=== PATIENT | male | born 1965 | race Caucasian/White ===

== ENCOUNTER → 2018-05-29 13:37 | Outpatient (CLI) | payer OTHER ==
[2014-02-17 05:25] VITALS: BMI 25.9
--- NOTE | ~2018-05-29 | EC ---
PATIENT:SOFIA SWAN DATE OF SERVICE: 05/29/18 SEX: M MEDICAL RECORD: [id number] DATE OF : 69 LOCATION:[facility] AGE OF PATIENT: 52 ADMISSION DATE: 05/29/18 REFERRING PHYSICIAN: INTERPRETING PHYSICIAN: DAVIDE KILGORE MD ECHOCARDIOGRAM REPORT ECHO CHARGES Date: CLINICAL DIAGNOSIS: ECHOCARDIOGRAPHIC MEASUREMENTS (adult normal given) AC root (d.<3.7cm) cm LV Septum d (<1.2 cm> cm Valve Excursion cm LV Septum (systole) cm Left Atria (s.<4.0cm> cm LVPW d(<1.2cm) cm RV (d.<2.3cm) cm LVPW (sytole) cm LV diastole(<5.6CM) cm MV E-F(>70mm/sec) cm LV systole cm LVOT Diameter cm MV exc.(>10mm) cm Est.ejection fraction (50-75%) % DOPPLER: LVIT cm/sec A cm/sec E cm/sec LA cm/sec RVSP mmHg LVOT cm/sec AOP1/2T m/s Asc. Ao cm/sec RVOT cm/sec RA cm/sec PA cm/sec AV Gradient Peak mmHg AV Mean mmHg AV Area cm MV Gradient Peak mmHg MV Mean mmHg MV Area cm COMMENTS: Radiator Specialist: Training And Documentation Specialist: [place]# Pericardial Effusion DATE OF SERVICE: Borderline LVH. LV internal dimensions are normal. Wall motion is normal. EF is greater than or equal to 55%. Aortic valve is tricuspid. No evidence of stenosis by Doppler interrogation. Left atrium is normal at 4.8 cm. Mitral valve shows no prolapse. Trace MR. Right-sided chamber is grossly normal. Trace TR. TRANSINT:[id number] Voice Confirmation ID: [id number] DOCUMENT ID: [id number] ECHOCARDIOGRAM REPORT [id number] SOFIA SWAN DAVIDE KILGORE MD CC: [id number] DICTATION DATE: 05/30/18 1325 SUPERVISOR LUMP ROOM: 05/30/18 1347 DEP CLI 05/29/18 [place] [id number] [place] [address]
--- NOTE | ~2018-05-29 | ST ---
PATIENT:SOFIA SWAN MEDICAL RECORD: [id number] SEX: M LOCATION:[facility] ORDER #: ADMISSION DATE: 05/29/18 AGE OF PATIENT: 52 REFERRING PHYSICIAN: INTERPRETING PHYSICIAN: DAVIDE KILGORE MD DATE OF SERVICE: 05/29/2018 PROCEDURE: Treadmill stress test. Baseline ECG is normal. Exercised for 10 minutes via Job protocol. Maximum heart rate was 154 beats per minute, less than 85% of max predicted. No ECG change of ischemia. No symptoms of ischemia. Normal blood pressure response to exercise. No arrhythmias noted. TRANSINT:[id number] Voice Confirmation ID: [id number] DOCUMENT ID: [id number] DAVIDE KILGORE MD CC: [id number] DICTATION DATE: 05/30/18 1328 STUDENT DEVELOPMENT SPECIALIST: 05/30/18 1402 [facility] CLI 05/29/[address] [id number]
[~2018-05-29 13:37] MED LIST: HYDROCODONE-APA1 TAB PO; PHENERGAN25 M1 PO
== END | disposition home or self-care (01) ==
LOC: D.HCCARDIO 13:37
PROVIDERS: ATTEND Internal Medicine Interventional Cardiology
DX: R06.09 Other forms of dyspnea (principal); R01.1 Cardiac murmur, unspecified